=== PATIENT | male | born 1985 | race Caucasian/White ===

== ENCOUNTER 2016-12-02 23:24 | Emergency (ER) | payer SELFPAY ==
[2016-12-02] MEDS ORDERED: MORPHINE SULFATE 10 MG/ML INJ IV PRN (23:36)
[2016-12-02] MEDS ORDERED: LIDOCAINE 5% (700 MG) TRANSDERMAL ADH..PATCH TP ONE (23:37)
[2016-12-02] MEDS ORDERED: MORPHINE SULFATE 10 MG/ML INJ ONE (23:37)
--- NOTE | 2016-12-02 23:39 | ER Document Report ---
ED General - General Stated Complaint: CHEST PAIN Notes: Patient is a 31-year-old male without past medical history who presents with acute onset of left chest wall pain after vigorous episode of coughing while smoking a cigarette. Discussed pain is a severe, constant, throbbing pain. States that it is worsened by coughing or moving. Nothing improves the pain. No history of similar symptoms in the past. Denies any associated shortness of breath, vomiting, diaphoresis or syncope. He has not seen his primary care physician regarding today's concerns. TRAVEL OUTSIDE OF THE [place] IN LAST 30 DAYS: No - Related Data Allergies/Adverse Reactions: No Known Allergies Allergy (Verified 12/25/14 07:26) Past Medical History - General Information source: Patient - Social History Smoking Status: Current Every Day Smoker Frequency of alcohol use: None Drug Abuse: None Lives with: Friend Family History: Reviewed & Not Pertinent, Other - copd Traumatic Medical History: Reports: Hx Fractures Past Surgical History: Reports: Hx Orthopedic Surgery - finger - Immunizations Immunizations up to date: Yes Hx Diphtheria, Pertussis, Tetanus Vaccination: Yes Review of Systems - Review of Systems Notes: Constitutional: Negative for fever. HENT: Negative for sore throat. Eyes: Negative for visual changes. Cardiovascular: Negative for chest pain. Respiratory: Negative for shortness of breath. Gastrointestinal: Negative for abdominal pain, vomiting or diarrhea. Genitourinary: Negative for dysuria. Musculoskeletal: Positive for left chest wall pain Skin: Negative for rash. Neurological: Negative for headaches, weakness or numbness. 10 point ROS negative except as marked above and in HPI. Physical Exam - Vital signs Vitals: Temp Pulse BP Pulse Ox 97.7 F 62 122/63 100 12/02/16 23:30 12/02/16 23:30 12/02/16 23:30 12/02/16 23:30 Interpretation: Normal Notes: PHYSICAL EXAMINATION: GENERAL: Well-appearing, well-nourished and in no acute distress. HEAD: Atraumatic, normocephalic. EYES: Pupils equal round and reactive to light, extraocular movements intact, sclera anicteric, conjunctiva are normal. ENT: nares patent, oropharynx clear without exudates. Moist mucous membranes. NECK: Normal range of motion, supple without lymphadenopathy LUNGS: Breath sounds clear to auscultation bilaterally and equal. No wheezes rales or rhonchi. HEART: Regular rate and rhythm without murmurs Chest wall: Severe pain on palpation of the left central and lower rib spaces ABDOMEN: Soft, nontender, normoactive bowel sounds. No guarding, no rebound. No masses appreciated. EXTREMITIES: Normal range of motion, no pitting or edema. No cyanosis. NEUROLOGICAL: No focal neurological deficits. Moves all extremities spontaneously and on command. PSYCH: Normal mood, normal affect. SKIN: Warm, Dry, normal turgor, no rashes or lesions noted. Course - Re-evaluation Re-evalutation: 12/02/16 23:37 Patient came in with acute onset of left-sided chest pain and shortness of breath. Given his clinical history of discerning abruptly while smoking a cigarette I immediately performed a bedside ultrasound which should show appropriate pleural slide bilaterally. He does have good breath sounds bilaterally. I do not suspect an acute pneumothorax at this time. A portable chest x-ray will also be obtained to confirm ultrasound findings. Bedside ultrasound of the heart again without any evidence of regional wall motion of the normality or pericardial effusion. Patient will be provided analgesia, labs will be obtained and he will be reassessed. 12/03/16 01:08 Chest x-ray does confirm bedside ultrasound findings of the absence of any pneumothorax or acute rib fractures. Lab is unremarkable including troponin. EKG without any ischemic changes. Patient's pain is now improved. I suspect likely intercostal irritation from vigorous episodes of coughing after smoking cigarettes.At this time will discharge with return precautions and follow-up recommendations. Verbal discharge instructions given a the bedside and opportunity for questions given. Medication warnings reviewed. Patient is in agreement with this plan and has verbalized understanding of return precautions and the need for primary care follow-up in the next 24-72 hours. - Vital Signs Vital signs: Temp Pulse Resp BP Pulse Ox 97.7 F 62 18 112/68 100 12/02/16 23:30 12/02/16 23:30 12/03/16 01:17 12/03/16 01:17 12/03/16 01:17 - Laboratory Result Diagrams: 12/03/16 00:00 - Diagnostic Test Radiology reviewed: Image reviewed, Reports reviewed Radiology results interpreted by me: 12/03/16 03:42 Chest x-ray: No acute infiltrate or pneumothorax - EKG Interpretation by Me Additional EKG results interpreted by me: 12/03/16 03:42 Normal sinus rhythm. Rate 66. No ST elevations or depressions. QTC 436. Discharge - Discharge Clinical Impression: Acute costochondritis Condition: Good Disposition: HOME, SELF-CARE Additional Instructions: Your chest wall pain is due to bruising of your ribs. This pain can last for up to 6 weeks. It is very important that you continue to take purposeful deep breaths. For your pain: Continue to take ibuprofen 600 mg every 6 hours or Tylenol 1000 mg every 6 hours. Apply local lidocaine to the area per bottle instructions. There is a product sold [id number] called "Aspercreme with lidocaine" that you can use for this purpose. Please follow-up with her primary care doctor in the next 2-3 days. Return to the emergency department immediately if you develop worsening shortness of breath, increased pain, begin coughing blood, pass out, or have any other symptoms that are worrisome to you.
[2016-12-03 00:37] LABS: ANION GAP 10 (5-19); BLOOD UREA NITROGEN 7 mg/dL (7-20); CALCIUM 10.2 mg/dL (8.4-10.2); CARBON DIOXIDE 25 mmol/L (22-30); CHLORIDE 106 mmol/L (98-107); CREATININE RESULT 0.92 mg/dL (0.52-1.25); GLUCOSE 94 mg/dL (75-110); POTASSIUM 3.7 mmol/L (3.6-5.0); SODIUM 141.4 mmol/L (137-145)
[2016-12-03] MEDS ORDERED: HYDROCODONE/ACETAMINOPHEN 5-325 MG 6 TAB/DSPK PO PRN (01:09)
[2016-12-03 01:21] VITALS: BP 112/68
--- NOTE | 2016-12-03 11:14 | EKG REPORT ---
SEVERITY:- NORMAL ECG - SINUS RHYTHM : Confirmed by: Tory Park 03-Dec-2016 11:13:57
== END 2016-12-03 01:27 | disposition home or self-care (01) ==
LOC: ER 23:24
DX: M94.0 Chondrocostal junction syndrome [Tietze] (principal); R07.9 Chest pain, unspecified; R06.02 Shortness of breath; F17.210 Nicotine dependence, cigarettes, uncomplicated
CPT/HCPCS: 93005; 99285; 96374; 36415; 80048; 84484; 71010; 93010; J2270

== ENCOUNTER 2016-12-30 03:10 | Emergency (ER) | payer SELFPAY ==
[2016-12-30] MEDS ORDERED: MORPHINE SULFATE 10 MG/ML INJ IV ONE (07:20)
--- NOTE | 2016-12-30 07:21 | ER Document Report ---
ED Cardiac - General Chief Complaint: Chest Wall Pain Stated Complaint: CHEST PAIN Mode of Arrival: Ambulatory Information source: Patient Notes: Patient presents with left-sided chest pain that started 1 week ago and was off and on but became persistent since 1:00 this morning. Patient states pain is a pressure-like sensation. Patient does report cough for the past 2 days. Patient denies any fever, nausea, vomiting, or shortness of breath. Patient denies any personal or family history of heart disease. Patient denies any recent travel, bedrest, or immobilization. Patient denies any previous history of DVT or PE in the past. TRAVEL OUTSIDE OF THE [place] IN LAST 30 DAYS: No - HPI Patient complains to provider of: Chest pain Was the onset of pain: Gradual Quality of pain: Constant, Pressure Pain level currently: 4 Cardiac risk factors: Smoker. denies: + Family history, Dyslipidemia, Hx IN Positive cardiac history: No Associated symptoms: denies: Abdominal pain, Anxiety, Back pain, Headache, Nausea/vomiting, Neck pain, Shortness of breath Exacerbated by: Torso movement Relieved by: Nothing Similar symptoms previously: Yes Recently seen / treated by doctor: No - Related Data Allergies/Adverse Reactions: No Known Allergies Allergy (Verified 12/25/14 07:26) Past Medical History - General Information source: Patient - Social History Smoking Status: Current Every Day Smoker Frequency of alcohol use: Occasional Drug Abuse: None Occupation: none Lives with: Friend Family History: Reviewed & Not Pertinent, Other - copd Patient has suicidal ideation: No Patient has homicidal ideation: No - Medical History Medical History: Negative - Past Medical History Cardiac Medical History: Denies: Hx DVT, Hx Heart Attack, Hx Hypertension, Hx Pulmonary Embolism Renal/ Medical History: Denies: Hx Peritoneal Dialysis Traumatic Medical History: Reports: Hx Fractures Past Surgical History: Reports: Hx Orthopedic Surgery - finger - Immunizations Immunizations up to date: Yes Hx Diphtheria, Pertussis, Tetanus Vaccination: Yes Review of Systems - Review of Systems Constitutional: No symptoms reported. denies: Fever, Recent illness EENT: No symptoms reported. denies: Throat pain Cardiovascular: Chest pain. denies: Dyspnea, Syncope Respiratory: Cough. denies: Short of breath Gastrointestinal: No symptoms reported. denies: Abdominal pain, Diarrhea, Nausea, Vomiting Genitourinary: No symptoms reported. denies: Dysuria, Flank pain Male Genitourinary: No symptoms reported Musculoskeletal: No symptoms reported. denies: Back pain Skin: No symptoms reported Hematologic/Lymphatic: No symptoms reported Neurological/Psychological: No symptoms reported Physical Exam - Vital signs Vitals: Temp Pulse Resp BP Pulse Ox 97.7 F 54 L 20 123/76 99 12/30/16 03:38 12/30/16 03:38 12/30/16 03:38 12/30/16 03:38 12/30/16 03:38 - General General appearance: Appears well, Alert In distress: None - HEENT Head: Normocephalic, Atraumatic Eyes: Normal Conjunctiva: Normal Nasal: Normal Mouth/Lips: Normal Mucous membranes: Normal Neck: Normal, Supple. No: Lymphadenopathy - Respiratory Respiratory status: No respiratory distress Chest status: Tender, Pain with deep breathing Breath sounds: Normal. No: Rales, Rhonchi, Stridor, Wheezing Chest palpation: Tender - Cardiovascular Rhythm: Regular Heart sounds: S1 appreciated, S2 appreciated Murmur: No - Abdominal Inspection: Normal Distension: No distension Bowel sounds: Normal Tenderness: Nontender Organomegaly: No organomegaly - Back Back: Normal, Nontender. No: CVA tenderness - Extremities General upper extremity: Normal inspection, Normal strength General lower extremity: Normal inspection, Normal strength - Neurological Neuro grossly intact: Yes Cognition: Normal Orientation: AAOx4 [place] Coma Scale Eye Opening: Spontaneous [place] Coma Scale Verbal: Oriented [place] Coma Scale Motor: Obeys Commands [place] Coma Scale Total: 15 - Psychological Associated symptoms: Normal affect, Normal mood - Skin Skin Temperature: Warm Skin Moisture: Diaphoretic - mild Skin Color: Normal Course - Re-evaluation Re-evalutation: 12/30/16 09:56 Patient sleeping, arouses easily to voice. Patient states that his chest discomfort is down to a 2/5 level. Patient's vital signs stable, director cardiac sinus bradycardia. Consulted with Dr. Copeland regarding patient presentation and diagnostic evaluation. Does not recommend any additional testing. Agrees with plan to discharge patient. The patient has atypical chest pain as the patient's chest pain is not suggestive of pulmonary embolus, cardiac ischemia, aortic dissection, or other serious etiology. Given the extremely low risk of these diagnoses for the test in evaluation for these possibilities does not appear to be indicated at this time. Patient has been instructed to return if the symptoms worsen or change in any way. Heart score 1 (hx smoking), patient PERC negative 12/30/16 10:20 Patient has a documented history of bradycardia on previous ER visits. Patient is not symptomatic with his bradycardia this time. - Vital Signs Vital signs: Temp Pulse Resp BP Pulse Ox 97.7 F 54 L 16 112/70 98 12/30/16 03:38 12/30/16 03:38 12/30/16 10:01 12/30/16 10:01 12/30/16 10:01 - Laboratory Result Diagrams: 12/30/16 07:50 12/30/16 07:50 Laboratory results interpreted by me: 12/30/16 12/30/16 12/30/16 07:50 07:50 08:55 WBC 13.5 H RBC 5.72 H Absolute Neutrophils 9.5 H AST 15 L Urine Protein 30 H Urine Ketones TRACE H Urine Urobilinogen 4.0 H Labs- Entire Visit 12/30/16 12/30/16 12/30/16 07:50 07:50 07:50 WBC 13.5 H RBC 5.72 H Hgb 16.3 Hct 48.6 MCV 85 MCH 28.5 MCHC 33.6 RDW 13.2 Plt Count 155 Seg Neutrophils % 70.1 Lymphocytes % 21.7 Monocytes % 6.7 Eosinophils % 1.0 Basophils % 0.5 Absolute Neutrophils 9.5 H Absolute Lymphocytes 2.9 Absolute Monocytes 0.9 Absolute Eosinophils 0.1 Absolute Basophils 0.1 Sodium 142.5 Potassium 4.2 Chloride 105 Carbon Dioxide 26 Anion Gap 12 BUN 9 Creatinine 0.81 Est GFR ( Amer) > 60 Est GFR (Non-Af Amer) > 60 Glucose 95 Calcium 9.8 Total Bilirubin 1.2 Direct Bilirubin 0.0 AST 15 L ALT 24 Alkaline Phosphatase 70 Creatine Kinase 62 CK-MB (CK-2) 0.33 Troponin I < 0.012 Total Protein 6.8 Albumin 4.5 Lipase 70.9 Urine Color Urine Appearance Urine pH Ur Specific [place] Urine Protein Urine Glucose (UA) Urine Ketones Urine Blood Urine Nitrite Urine Bilirubin Urine Urobilinogen Ur Leukocyte Esterase Urine WBC (Auto) Urine RBC (Auto) Squamous Epi Cells Auto Urine Mucus (Auto) Urine Ascorbic Acid Urine Opiates Screen Urine Methadone Screen Ur Barbiturates Screen Ur Phencyclidine Scrn Ur Amphetamines Screen U Benzodiazepines Scrn Urine Cocaine Screen U Marijuana (THC) Screen 12/30/16 12/30/16 08:55 08:55 WBC RBC Hgb Hct MCV MCH MCHC RDW Plt Count Seg Neutrophils % Lymphocytes % Monocytes % Eosinophils % Basophils % Absolute Neutrophils Absolute Lymphocytes Absolute Monocytes Absolute Eosinophils Absolute Basophils Sodium Potassium Chloride Carbon Dioxide Anion Gap BUN Creatinine Est GFR ( Amer) Est GFR (Non-Af Amer) Glucose Calcium Total Bilirubin Direct Bilirubin AST ALT Alkaline Phosphatase Creatine Kinase CK-MB (CK-2) Troponin I Total Protein Albumin Lipase Urine Color AROLDO Urine Appearance SLIGHTLY-CLOUDY Urine pH 6.0 Ur Specific [place] 1.030 Urine Protein 30 H Urine Glucose (UA) NEGATIVE Urine Ketones TRACE H Urine Blood NEGATIVE Urine Nitrite NEGATIVE Urine Bilirubin NEGATIVE Urine Urobilinogen 4.0 H Ur Leukocyte Esterase NEGATIVE Urine WBC (Auto) 1 Urine RBC (Auto) 1 Squamous Epi Cells Auto <1 Urine Mucus (Auto) MANY Urine Ascorbic Acid NEGATIVE Urine Opiates Screen UNCONFIRMED POSITIVE Urine Methadone Screen NEGATIVE Ur Barbiturates Screen NEGATIVE Ur Phencyclidine Scrn NEGATIVE Ur Amphetamines Screen NEGATIVE U Benzodiazepines Scrn NEGATIVE Urine Cocaine Screen NEGATIVE U Marijuana (THC) Screen UNCONFIRMED POSITIVE - Diagnostic Test Radiology reviewed: Reports reviewed - EKG Interpretation by [facility] EKG shows normal: Sinus rhythm Rate: Bradycardia Discharge - Discharge Clinical Impression: Marijuana abuse Chest pain Qualifiers: Chest pain type: unspecified Qualified Code(s): R07.9 - Chest pain, unspecified Upper respiratory infection Qualifiers: URI type: unspecified URI Qualified Code(s): J06.9 - Acute upper respiratory infection, unspecified Condition: Stable Disposition: HOME, SELF-CARE Instructions: Upper Respiratory Illness ([facility]), Chest Wall Pain ([facility]), Anti- Inflammatory Medication ([facility]) Additional Instructions: Return immediately for any new or worsening symptoms Followup with your primary care provider, call tomorrow to make a followup appointment Avoid any use of recreational drugs. Increase oral fluids and stay well-hydrated Stop smoking Prescriptions: Naproxen [Naprosyn 250 Nmg Tablet] 1 tab PO BID #14 tablet Forms: Smoking Cessation Education Referrals: [facility] [Provider Group] - Follow up as needed [facility] [Provider Group] - Follow up tomorrow
[2016-12-30 08:10] LABS: ABSOLUTE BASOPHILS # (AUTO) 0.1 10^3/uL (0.0-0.2); ABSOLUTE EOSINOPHILS # (AUTO) 0.1 10^3/uL (0.0-0.6); ABSOLUTE LYMPHOCYTES (AUTO) 2.9 10^3/uL (0.5-4.7); ABSOLUTE MONOCYTES (AUTO) 0.9 10^3/uL (0.1-1.4); ABSOLUTE NEUT (AUTO) 9.5 10^3/uL (1.7-8.2); BASOPHILS % (AUTO) 0.5 % (0-2); HEMATOCRIT 48.6 % (37.9-51.0); HEMOGLOBIN 16.3 g/dL (13.5-17.0); HGB HCT DIFFERENCE 0.3; LYMPHOCYTES % (AUTO) 21.7 % (13-45); MEAN CORPUSCULAR HEMOGLOBIN 28.5 pg (27.0-33.4); MEAN CORPUSCULAR HGB CONC 33.6 g/dL (32.0-36.0); MEAN CORPUSCULAR VOLUME 85 fl (80-97); MONOCYTES % (AUTO) 6.7 % (3-13); RED BLOOD COUNT 5.72 10^6/uL (4.35-5.55); RED CELL DISTRIBUTION WIDTH 13.2 % (11.5-14.0); SEGMENTED NEUTROPHILS % (AUTO) 70.1 % (42-78); WHITE BLOOD COUNT 13.5 10^3/uL (4.0-10.5)
[2016-12-30 08:24] LABS: ALANINE AMINOTRANSFERASE 24 U/L (21-72); ALBUMIN 4.5 g/dL (3.5-5.0); ALKALINE PHOSPHATASE 70 U/L (38-126); ANION GAP 12 (5-19); ASPARTATE AMINO TRANSFERASE 15 U/L (17-59); BILIRUBIN,TOTAL 1.2 mg/dL (0.2-1.3); BLOOD UREA NITROGEN 9 mg/dL (7-20); CALCIUM 9.8 mg/dL (8.4-10.2); CARBON DIOXIDE 26 mmol/L (22-30); CHLORIDE 105 mmol/L (98-107); CREATINE KINASE 62 U/L (55-170); CREATININE RESULT 0.81 mg/dL (0.52-1.25); GLUCOSE 95 mg/dL (75-110); LIPASE 70.9 U/L (23-300); POTASSIUM 4.2 mmol/L (3.6-5.0); SODIUM 142.5 mmol/L (137-145); TOTAL PROTEIN 6.8 g/dL (6.3-8.2)
[2016-12-30 08:36] LABS: CREATINE KINASE MB 0.33 ng/mL (<4.55); TROPONIN I < 0.012 ng/mL
[2016-12-30 09:20] LABS: APPEARANCE,URINE SLIGHTLY-CLOUDY; BILIRUBIN,URINE NEGATIVE (NEGATIVE); GLUCOSE, URINE NEGATIVE (NEGATIVE); KETONES,URINE TRACE mg/dL (NEGATIVE); LEUKOCYTE ESTERASE,URINE NEGATIVE (NEGATIVE); NITRITE,URINE NEGATIVE (NEGATIVE); PROTEIN,URINE 30 mg/dL (NEGATIVE)
[2016-12-30] MEDS ORDERED: NORMAL SALINE 1000 ML 1,000 ML IV ONE (09:27)
[2016-12-30 09:29] LABS: URINE BARBITURATES SCREEN NEGATIVE; URINE METHADONE SCREEN NEGATIVE; URINE OPIATES LOW UNCONFIRMED POSITIVE; URINE PHENCYCLIDINE SCREEN NEGATIVE
[2016-12-30 10:45] VITALS: BP 127/91
--- NOTE | 2016-12-31 11:15 | EKG REPORT ---
SEVERITY:- OTHERWISE NORMAL ECG - SINUS BRADYCARDIA : Confirmed by: Tory Park 31-Dec-2016 11:15:15
== END 2016-12-30 10:40 | disposition home or self-care (01) ==
LOC: ER 03:10
DX: J06.9 Acute upper respiratory infection, unspecified (principal); F12.10 Cannabis abuse, uncomplicated; R07.89 Other chest pain; R07.1 Chest pain on breathing; R00.1 Bradycardia, unspecified; R05 Cough; F17.200 Nicotine dependence, unspecified, uncomplicated
CPT/HCPCS: 93005; 99284; 96361; 96374; 36415; 82553; 82550; 83690; 85025; 80053; 81001; 84484; 80307; 71020; 93010; J2270; J7030

== ENCOUNTER 2017-01-13 22:31 | Emergency (ER) | payer SELFPAY ==
[2017-01-13 23:00] VITALS: BP 134/87
[2017-01-13] MEDS ORDERED: ACETAMINOPHEN 325 MG TABLET PO ONE (23:30)
== END 2017-01-14 02:30 | disposition left against medical advice (07) ==
LOC: ER 22:31
DX: Z53.21 Procedure and treatment not carried out due to patient leaving prior to being seen by health care provider (principal)

== ENCOUNTER 2017-02-13 18:46 | Emergency (ER) | payer SELFPAY ==
[2017-02-13] MEDS ORDERED: KETOROLAC TROMETHAMINE 60 MG/2 ML SDV IM ONE (20:00)
--- NOTE | 2017-02-13 20:06 | ER Document Report ---
ED Neck/Back Problem - General Chief Complaint: Back Pain Stated Complaint: BACK PAIN Mode of Arrival: Ambulatory Information source: Patient TRAVEL OUTSIDE OF THE [place] IN LAST 30 DAYS: No - HPI Patient complains to provider of: Pain Notes: Patient also complains of bilateral upper back pain for the last 2 days. He denies any traumatic injuries or falls. He states he was moving some heavy furniture a few days ago though. He states that the pain is worse with movement and touching the area. Is better with rest. He denies any chest pain or shortness of breath. He denies any abdominal pain. He denies nausea, vomiting, diarrhea. No dysuria or hematuria. He denies being on blood thinners. He denies IV drug use. He denies fevers. He denies any bowel or bladder dysfunction. No numbness tingling or weakness to legs. - Related Data Allergies/Adverse Reactions: No Known Allergies Allergy (Verified 02/13/17 18:48) Past Medical History - Social History Smoking Status: Unknown if Ever Smoked Family History: Reviewed & Not Pertinent, Other - copd Patient has suicidal ideation: No Patient has homicidal ideation: No - Past Medical History Cardiac Medical History: Denies: Hx DVT, Hx Heart Attack, Hx Hypertension, Hx Pulmonary Embolism Pulmonary Medical History: Neurological Medical History: Endocrine Medical History: Renal/ Medical History: Denies: Hx Peritoneal Dialysis Musculoskeltal Medical History: Psychiatric Medical History: Traumatic Medical History: Reports: Hx Fractures Past Surgical History: Reports: Hx Orthopedic Surgery - finger - Immunizations Immunizations up to date: Yes Hx Diphtheria, Pertussis, Tetanus Vaccination: Yes Review of Systems - Review of Systems -: Yes All other systems reviewed and negative Physical Exam - Vital signs Vitals: Temp Pulse Resp BP Pulse Ox 98.5 F 78 18 128/69 H 95 02/13/17 18:49 02/13/17 18:49 02/13/17 18:49 02/13/17 18:49 02/13/17 18:49 - Notes Notes: GENERAL: alert, cooperative, nontoxic, no distress. HEAD: normocephalic, atraumatic EYES: conjunctiva pink without discharge, no external redness or swelling. EARS: no external swelling, no external redness NOSE: atraumatic, no external swelling MOUTH/THROAT: mucous membranes moist and pink, posterior pharynx without erythema, swelling, exudate. No trismus or drooling. NECK: soft, supple, full range of motion, no meningismus. CHEST: no distress, lungs clear and equal throughout. No wheezing, rales, rhonchi. CARDIAC: regular rate and rhythm, no murmur, normal capillary refill, normal pulses. No peripheral edema noted. ABDOMEN: soft, nontender, no pusatile mass. BACK: Patient have muscle spasm and tenderness along the thoracic paraspinal muscles bilaterally. No midline tenderness to posterior crepitus. No rash. No redness. EXTREMITIES: full range of motion of all extremities. No redness, no swelling. NEURO: alert and oriented 3, no focal deficits, full range of motion of all extremities. 5 out of 5 flexion and extension of the lower extremities bilaterally. Patellar and Achilles deep tendon reflexes are +2 bilaterally. Normal sensation with no saddle anesthesia. PYSCH: appropriate mood, affect. Patient is cooperative. SKIN: pink, warm, dry, no rash. Course - Re-evaluation Re-evalutation: 02/13/17 20:02 Patient's nontoxic appearance to her vitals. Patient's had upper back pain for the last few days. No trauma. His no risk or sign of cauda equina or epidural abscess or bleed. He has no abdominal urinary symptoms. No chest pain or shortness of breath. He is noted to have reproducible muscle spasm and tenderness to the thoracic, spinal muscles. Patient will be given a shot of Toradol here. Discharged home with Voltaren and Zanaflex. Structures to apply heat to the sore area. Avoid heavy lifting and stay active. Follow-up if not better in one week, sooner for increased pain, fever, numbness, tingling, weakness, difficulty controlling bowels or bladder, or any further concerns. The patient is noted to have elevated blood pressure during today's emergency department visit. The patient was informed of this finding. The patient was instructed that this may be related to pre-hypertension and requires further evaluation with a primary care provider. The patient has no hypertensive symptoms at this time. The patient's emergency department workup and current diagnosis were explained to the patient and or family. Follow-up instructions were provided. Medications if prescribed were discussed. Instructions for when to return to the emergency department including specific worrisome symptoms were discussed with the patient and/or family. - Vital Signs Vital signs: Temp Pulse Resp BP Pulse Ox 98.5 F 78 18 128/69 H 95 02/13/17 18:49 02/13/17 18:49 02/13/17 18:49 02/13/17 18:49 02/13/17 18:49 Discharge - Discharge Clinical Impression: Spasm of thoracic back muscle Condition: Stable Disposition: HOME, SELF-CARE Instructions: Muscle Strain ([facility]), Warm Packs ([facility]) Additional Instructions: Take medications as prescribed. Apply heat to the sore area. Avoid heavy lifting but stay active. Follow up if not better in one week, sooner for increased pain, fever, chest pain, shortness of breath, abdominal pain, urinary symptoms, vomiting, difficulty controlling her bowels or bladder, numbness, tingling, weakness of the legs, or any further concerns. Your blood pressure was elevated during today's visit. Have this rechecked with your doctor. Prescriptions: Diclofenac Sodium [Voltaren] 75 mg PO BID #20 tablet. Tizanidine HCl [Zanaflex 4 Mg Tablet] 4 mg PO TID PRN #15 tablet PRN Reason: Forms: Elevated Blood Pressure
[2017-02-14 00:04] VITALS: BP 132/85
== END 2017-02-13 23:45 | disposition home or self-care (01) ==
LOC: ER 18:46
DX: M62.830 Muscle spasm of back (principal); M54.9 Dorsalgia, unspecified; M54.6 Pain in thoracic spine
CPT/HCPCS: 99283; 96372; J1885

== ENCOUNTER 2018-03-16 13:21 | Emergency (ER) | payer SELFPAY ==
[2018-03-16] MEDS ORDERED: DOCUSATE SODIUM 100 MG CAPSULE BTH_EAR ONE (14:13)
--- NOTE | 2018-03-16 15:04 | ER Document Report ---
HPI - HPI Patient complains to provider of: ear fullness Pain Level: 2 Context: Patient is a 32-year-old male complaining of right ear fullness and decreased hearing for several days. No pain, no drainage, no fever Associated Symptoms: None Exacerbated by: Denies Relieved by: Denies - ROS Systems Reviewed and Negative: Yes All other systems reviewed and negative - CONSTITUTIONAL Constitutional: DENIES: Fever, Chills - EENT EENT: REPORTS: Ear Pain - right Past Medical History - General Information source: Patient - Social History Smoking Status: Current Every Day Smoker Frequency of alcohol use: None Drug Abuse: None Lives with: Family Family History: Reviewed & Not Pertinent, Other - copd Patient has suicidal ideation: No Patient has homicidal ideation: No - Past Medical History Cardiac Medical History: Denies: Hx DVT, Hx Heart Attack, Hx Hypertension, Hx Pulmonary Embolism Pulmonary Medical History: Neurological Medical History: Endocrine Medical History: Renal/ Medical History: Denies: Hx Peritoneal Dialysis Musculoskeltal Medical History: Psychiatric Medical History: Traumatic Medical History: Reports: Hx Fractures Past Surgical History: Reports: Hx Orthopedic Surgery - finger - Immunizations Immunizations up to date: Yes Hx Diphtheria, Pertussis, Tetanus Vaccination: Yes Vertical Provider Document - CONSTITUTIONAL Agree With Documented VS: Yes Exam Limitations: No Limitations - INFECTION CONTROL TRAVEL OUTSIDE OF THE [place] IN LAST 30 DAYS: No - HEENT Notes: + cerumen impaction bilat - NECK Neck: Normal Inspection, Supple - RESPIRATORY Respiratory: Breath Sounds Normal, No Respiratory Distress - MUSCULOSKELETAL/EXTREMETIES Musculoskeletal/Extremeties: MAEW - NEURO Level of Consciousness: Awake, Alert Course - Re-evaluation Re-evalutation: 03/16/18 15:14 Both ears irrigated with good results. Ear canals and eardrums are normal after irrigation. - Vital Signs Vital signs: Temp Pulse Resp BP Pulse Ox 99.1 F 64 16 122/67 96 03/16/18 13:25 03/16/18 13:25 03/16/18 13:25 03/16/18 13:25 03/16/18 13:25 Discharge - Discharge Clinical Impression: Cerumen impaction Qualifiers: Laterality: bilateral Qualified Code(s): H61.23 - Impacted cerumen, bilateral Condition: Stable Disposition: HOME, SELF-CARE Instructions: Cerumen Impaction ([facility]) Additional Instructions: Your ear was full of wax today. You may use [id number] ear irrigation as needed Follow-up with your primary care as needed
[2018-03-16 16:23] VITALS: BP 109/70
== END 2018-03-16 16:24 | disposition home or self-care (01) ==
LOC: ER 13:21
DX: H61.23 Impacted cerumen, bilateral (principal); F17.200 Nicotine dependence, unspecified, uncomplicated
CPT/HCPCS: 99282